=== PATIENT | male | born 1960 | race Caucasian/White ===

== ENCOUNTER 2018-08-14 07:56 | Emergency (ER) | payer OTHER ==
[2018-08-14 08:10] VITALS: TEMP 97.7
[2018-08-14 09:43] VITALS: BP 152/83; PULSE 70; RESP 18; O2SAT 92
== END 2018-08-14 09:45 | disposition home or self-care (01) | DRG 552 ==
LOC: ED 07:56
DX: M62.830 Muscle spasm of back (principal); V43.53XA Car driver injured in collision with pick-up truck in traffic accident, initial encounter; R40.2362 Coma scale, best motor response, obeys commands, at arrival to emergency department; R40.2142 Coma scale, eyes open, spontaneous, at arrival to emergency department; R40.2252 Coma scale, best verbal response, oriented, at arrival to emergency department
CPT/HCPCS: 72120; 99283; G0390